=== PATIENT | female | born 1980 | race Caucasian/White ===

== ENCOUNTER 2016-08-29 09:59 | Inpatient (IN) | payer OTHER ==
[~2016-08-29] VITALS: Ht 167.6 cm; Wt 72.6 kg
[2016-08-29 18:00] VITALS: BP 123/67
--- NOTE | 2016-08-29 18:00 | NUR ---
Pre-admission Notes: Received patient in intake at this time. Alert, verbally responsive. Oriented x 4. Able to make her needs known. Appears anxious with mild tremors noted. Also appears nervous and requires reassurance. Denies any seizure history and denies any allergies. Able to answer questions readily and appropriately regarding the admission process. Noted with good eye contact. Denies any past medical hx. Does not have a PCP. Patient states that she is here to get help from drinking. Explained to the client the admission process, provided support and reassurance. VS as ff: BP 123/67 Pulse 99 RR [address] 0/10 O2 sat = 96% RA CIWA 4
[2016-08-29] MEDS ORDERED: IBUPROFEN 400 MG TABLET PO PRN (18:15)
[2016-08-29] MEDS ORDERED: MIRALAX 17 GM POWD.PACK PO PRN (18:15)
[2016-08-29] MEDS ORDERED: CLONIDINE HCL 0.1 MG TABLET PO PRN (18:15)
[2016-08-29] MEDS ORDERED: DICYCLOMINE HCL 20 MG TABLET PO PRN (18:15)
[2016-08-29] MEDS ORDERED: diphenhydrAMINE 50 MG CAPSULE PO PRN (18:15)
[2016-08-29] MEDS ORDERED: ACETAMINOPHEN 325 MG TABLET PO PRN (18:15)
[2016-08-29] MEDS ORDERED: LORAZEPAM 1 MG TABLET PO PRN ×2 (18:15)
[2016-08-29] MEDS ORDERED: MAG HYDROX/AL HYDROX/SIMETH 30 ML LIQUID UDC PO PRN (18:15)
[2016-08-29] MEDS ORDERED: MAGNESIUM HYDROXIDE 30 ML LIQUID UDC PO PRN (18:15)
[2016-08-29] MEDS ORDERED: THIAMINE HCL 200 MG/2 ML VIAL IM ONE (18:15)
[2016-08-29] MEDS ORDERED: LOPERAMIDE HCL 2 MG CAPSULE PO PRN ×2 (18:15)
[2016-08-29] MEDS ORDERED: LORAZEPAM 2 MG/1 ML VIAL IM PRN (18:15)
[2016-08-29] MEDS ORDERED: ONDANSETRON 4 MG/2 ML VIAL IM PRN (18:15)
[2016-08-29] MEDS ORDERED: ONDANSETRON ODT 4 MG TAB.RAPDIS SL PRN (18:15)
--- NOTE | 2016-08-29 18:26 | NUR ---
Admission Note: Admitted a 35 year old female under the care of Dr. Sergio Whyte who states that she is here to detox from ETOH. Alert and oriented x 4. Able to make her needs known. Appears anxious, fearful and worried as this is the patient's first time in detox. Reassurance and support provided. Respirations even and unlabored. No SOB noted. Skin warm and moist to touch. Body search done. No contraband was found. Skin check done. No skin breakdown noted. Abdomen soft and non-distended with (+) BS in all 4 quadrants. Denies any complains of N/V/D or constipation noted. No complains of abdominal discomfort noted. Bladder non-distended. No complains of dysuria noted. Ambulatory ad eufemia with steady gait. Patient denies any allergies. Wishes to be FULL CODE. Follows a regular diet at home. Denies any past medical hx. Reports not having a PCP. Denies any seizure history. Patient brought in 3 bottles of herbal supplements for sleep and for health maintenance. Reports that both her parents have a hx of substance abuse. Everyday stressors in life has led her to drink more than she should. Substance Use: 1. ETOH - since 27 years old, drinks 750cc of wine, 750cc of Hood Castillo and 2 beers daily to every other day. Last drink was on 08/27/2016 Treatment Hx: 1. First time in treatment Dr. Whyte made aware of patient's arrival in the unit, report provided and will come and see the patient and enter orders. Addendum: 08/29/16 at 1904 by ZENA TAMAYO LVN Note clarification to substance use hx: 1. Substance Use: 1. ETOH - since 27 years old, drinks 750cc of wine, 750cc of Hood Castillo and 2 beers daily to every other day x 3 years. Last drink was on 08/27/2016
[2016-08-29] MEDS ORDERED: [UNRECOGNIZED DRUG - REMARK] (18:45)
[2016-08-29] MEDS ORDERED: CAYE450C5 PO (18:45)
[2016-08-29] MEDS ORDERED: [UNRECOGNIZED DRUG - OTHER] (18:45)
--- NOTE | 2016-08-29 18:57 | NUR ---
End of Shift Notes: Patient is in her room at this time. Able to provide urine specimen for UDS and test. Explained all of the unit's protocol and procedures. Safety precautions in place. Will continue to monitor.
[2016-08-29 19:01] LABS: *URINE HCG, QUAL NEGATIVE (NEGATIVE)
[2016-08-29 19:24] LABS: *AMPHETAMINE, URINE NEGATIVE (NEGATIVE); *BARBITURATE, URINE NEGATIVE (NEGATIVE); *CANNABINOID, URINE POSITIVE (NEGATIVE); *COCCAINE, URINE NEGATIVE (NEGATIVE); *OPIATE, URINE NEGATIVE (NEGATIVE); *PHENCYCLIDINE SCREEN,URINE NEGATIVE (NEGATIVE)
[2016-08-29 20:00] VITALS: BP 132/77
--- NOTE | 2016-08-29 20:00 | NUR ---
Start of Shift Pt is a 35 year old female admitted for ETOH dependence, placed on 5 day Ativan taper. Pt reported consuming 750cc of wine, 750cc of tonio haylee and 2 beers from an everyday basis or to an every other day basis. Pt denies any past medical history, denies seizure history. NKA, regular diet, fall/seizure precautions and full code. Upon assessment, pt presents with anxiousness, is in emotional distress, visible tremors, skin flushed noted with moderate sweat. Respirations even/unlabored, denies SOB/chest pain, denies n/v/d, bowel sounds active x4, abdomen soft. Safety measures in place, call light within reach, side rails up x2, bed locked and in low position. Will continue to monitor.
[2016-08-29 20:27] LABS: BASOPHILS % (AUTO) 0.2 % (0.0-2.0); EOSINOPHILS # (AUTO) 0.1 K/uL (0.0-0.7); EOSINOPHILS % (AUTO) 0.9 % (0.0-7.0); HEMATOCRIT 40.3 % (37-47); HEMOGLOBIN 13.7 G/DL (12.0-16.0); LYMPHOCYTES # (AUTO) 2.4 K/UL (0.8-4.8); LYMPHOCYTES % (AUTO) 19.4 % (20.5-51.5); MEAN CORPUSCULAR HEMOGLOBIN 31.8 UUG (27.0-31.0); MEAN CORPUSCULAR HGB CONC 34 g/dL (32.0-37.0); MEAN CORPUSCULAR VOLUME 93.5 FL (81.0-99.0); MONOCYTES # (AUTO) 1.1 K/UL (0.1-1.30); MONOCYTES % (AUTO) 9.4 % (0.0-11.0); NEUTROPHILS # (AUTO) 8.6 K/UL (1.8-8.9); NEUTROPHILS % (AUTO) 70.1 % (38.5-71.5); PLATELET COUNT (AUTO) 374 K/UL (150-450); RED BLOOD CELL COUNT(AUTO) 4.31 MIL/UL (4.2-5.4); WHITE BLOOD COUNT (AUTO) 12.2 K/UL (4.0-11.2)
[2016-08-29 20:31] LABS: ALANINE AMINOTRANSFERASE 44 U/L (14-59); ALKALINE PHOSPHATASE 68 U/L (50-136); AMYLASE 56 U/L (25-115); ASPARTATE AMINOTRANSFERASE 39 U/L (15-37); BILIRUBIN,TOTAL 0.4 mg/dL (0.2-1.0); CARBON DIOXIDE 26 mmol/L (21-32); CHLORIDE 102 mmol/L (98-107); CREATININE 1.1 mg/dL (0.6-1.3); ETHANOL < 3 MG/DL (0-0); GLUCOSE 102 mg/dL (74-106); LIPASE 120 U/L (73-393); MAGNESIUM 1.6 mg/dL (1.8-2.4); POTASSIUM 3.8 mmol/L (3.5-5.1); TOTAL PROTEIN, SERUM 7.9 g/dL (6.4-8.2); UREA NITROGEN, BLOOD 12 mg/dL (7-18)
[2016-08-29 20:41] LABS: THYROID STIMULATING HORMONE 2.209 mIU/mL (0.358-3.740)
[2016-08-29] MEDS ORDERED: MAGNESIUM OXIDE 400 MG TABLET PO ONE (21:00)
[2016-08-29] MEDS ORDERED: LORAZEPAM 1 MG TABLET PO SCH (21:00)
[2016-08-29] MEDS ORDERED: MAGNESIUM OXIDE 400 MG TABLET ONE (21:26)
[2016-08-30] VITALS: BP 129/76
--- NOTE | 2016-08-30 | NUR ---
Vital Signs BP 129/76, pulse 69, resp 16, Spo2 99% room air, temp 97.9, no reports of pain 0/10 CIWA deferred d/t pt sleeping to assess while pt is awake as ordered. Safety measures in place, will continue to monitor.
[2016-08-30 04:00] VITALS: BP 115/72
--- NOTE | 2016-08-30 04:00 | NUR ---
Vital Signs BP 115/72, pulse 70, resp 16, Spo2 100% room air, temp 97.6, no reports of pain 0/10 CIWA deferred d/t pt sleeping to assess while pt is awake as ordered. Safety measures in place, will continue to monitor.
--- NOTE | 2016-08-30 07:00 | NUR ---
End of Shift Pt is a 35 year old female admitted for ETOH dependence, placed on 5 day Ativan taper. Pt reported consuming 750cc of wine, 750cc of tonio haylee and 2 beers from an everyday basis or to an every other day basis. Pt denies any past medical history, denies seizure history. NKA, regular diet, fall/seizure precautions and full code. During shift, pt presented with anxiousness, in emotional distress, visible tremors, skin flushed noted with moderate sweat scheduled medications administered, CIWA 5. Mag-Ox 800mg supplemented and refused Vitamin B1 inj, risks/benefits explained. Pt slept for 8 hours, intake of 1000 ml PO, voids x1 and stool x0. Safety measures in place, call light within reach, side rails up x2, bed locked and in low position. Endorsed to day shift nurse.
--- NOTE | 2016-08-30 07:01 | NUR ---
Start of Shift Notes: Received patient in her room. Alert and verbally responsive. Oriented x 4 Able to make her needs known. Respirations even and unlabored. No SOB noted. Skin warm and dry to touch. Abdomen soft and non-distended with (+) BS in all 4 quadrants. No complains of N/V/D or constipation noted. Ambulatory ad eufemia with steady gait. Patient is a 35 year old female admitted for ETOH dependence who was placed on a 5-day Ativan taper as ordered. No adverse reactions noted. Denies any past medical hx. Prior to admission, patient was using 750cc of wine, 750cc of tonio irnaldi and 2 beers daily to every other day x 3 years. NKA. FULL CODE. Regular diet. On fall and seizure precautions. Educated patient on her current plan of care for the day and her medication regimen. Encouraged oral fluid intake and encouraged group participation to learn new skills to prevent relapse. Will continue to monitor.
[2016-08-30 08:00] VITALS: BP 129/86
[2016-08-30] MEDS: THIAMINE HCL 100 MG TABLET PO SCH (08:08)
[2016-08-30] MEDS: FOLIC ACID 1 MG TABLET PO SCH (08:08)
[2016-08-30] MEDS: MULTIVITAMINS,THERAPEUTIC TABLET PO SCH (08:08)
[2016-08-30] MEDS: LORAZEPAM 1 MG TABLET PO SCH ×4 (08:08→21:59)
[2016-08-30] MEDS ORDERED: TUBERCULIN,PURIF.PROT.DERIV. 5 TU/0.1 ML TEST ID ONE (09:00)
[2016-08-30 12:00] VITALS: BP 118/71
--- NOTE | 2016-08-30 14:47 | NUR ---
Psych MD Communication: Notified Dr. Peraza of patient's behavior. Appears depressed, emotional and at times unable to be redirected.
--- NOTE | 2016-08-30 15:00 | NUR ---
Pt seen and evaluated by Dr. Peraza
[2016-08-30 16:00] VITALS: BP 99/54
--- NOTE | 2016-08-30 18:54 | NUR ---
Endo of Shift Notes: Patient continues to be on a 5-day Ativan taper as ordered to manage ETOH withdrawal. VS monitored closely. No significant abnormalities noted Withdrawal symptoms were closely monitored. Initial CIWA 9, patient presented with gross tremors, anxiety, agitation and sweats. Last CIWA 5. Per patient, Ativan has been helping her with her withdrawal symptoms. Patient was encouraged to attend group and socialize with his peers due to episodes of self isolation in the room. Patient was also very emotional during the shift. Support was provided. Compliant with care and treatment. ALl needs met and attended. Call light in reach. Will monitor closely.
--- NOTE | 2016-08-30 19:50 | NUR ---
START OF SHIFT 309 Received report from day shift nurse. Pt is lying in bed resting. She is a 35 yo female admitted to [facility] on 08/29 for ETOH dependence. She is A&O x4 and ambulatory. NKA, full code status, and on a regular diet. She has a PMH of depression. On admission she reported drinking wine 750mL, tonio haylee's 750mL, and 2 beers per day. She started a 5 day Ativan taper on 08/30. She has moist skin, tremors that can be felt, and reports anxiety. Pt denies SI. Ativan taper due tonight. Fall and seizure precautions in place. Bed is down with call light in reach.
[2016-08-30 20:00] VITALS: BP 117/65
[2016-08-31] VITALS: BP 102/61
--- NOTE | 2016-08-31 | NUR ---
0000 CIWA deferred CIWA ordered Q4HWA. Pt is lying in bed resting with eyes closed. Respirations even and unlabored. Vital signs obtained. Safety measures in place.
[2016-08-31 04:00] VITALS: BP 122/72
--- NOTE | 2016-08-31 04:00 | NUR ---
0400 CIWA deferred CIWA ordered Q4HWA. Pt is lying in bed resting with eyes closed. Respirations even and unlabored. Vital signs obtained. Safety measures in place.
--- NOTE | 2016-08-31 07:20 | NUR ---
END OF SHIFT Report provided to day shift nurse. Pt is lying in bed resting. She is a 35 yo female admitted to [facility] on 08/29 for ETOH dependence. She is A&O x4 and ambulatory. NKA, full code status, and on a regular diet. She has a PMH of depression per MD notes. On admission she reported drinking wine 750mL or tonio haylee's 750mL and 2 beers per day. She started a 5 day Ativan taper on 08/30. She has moist skin, tremors that can be felt, and reports anxiety. No PRN medications administered. Fall and seizure precautions in place. Bed is down with call light in reach. Addendum: 08/31/16 at 0748 by NANCY SARKAR RN Last CIWA was 4. She drank 480mL and slept for 11 hours.
--- NOTE | 2016-08-31 07:30 | NUR ---
START OF SHIFT Pt 35 y/o female admitted for etoh dependence. Pt received in room with eyes closed resting, but easily arousable to name. Pt alert and oriented to name, place, and time. Perrla. Skin warm and slightly moist to touch. Bilateral hnd tremors noted. Respirations even and unlabored. Pt appeared guarded on approach with poor eye contact during conversation. It was reported that pt slept for 11 hours last night. Bed on lowest position with side rails x2 up for safety. Call light within reach. No distress noted at this time.
[2016-08-31 08:00] VITALS: BP 117/71
[2016-08-31] MEDS: FOLIC ACID 1 MG TABLET PO SCH (09:08)
[2016-08-31] MEDS: MULTIVITAMINS,THERAPEUTIC TABLET PO SCH (09:08)
[2016-08-31] MEDS: THIAMINE HCL 100 MG TABLET PO SCH (09:08)
[2016-08-31] MEDS: LORAZEPAM 1 MG TABLET PO SCH ×3 (09:09→21:18)
--- NOTE | 2016-08-31 10:02 | NUR ---
Clinician encouraged client to attend groups. Client declined stating "it won't do me any good crying in group". Client states she wants to go home. JUNIOR Correa informed. Client then asked for help with anxiety . JUNIOR Correa notified.
[2016-08-31 10:12] LABS: HEPATITIS B SURFACE AG Negative (Negative)
[2016-08-31] MEDS: HYDROXYZINE PAMOATE 25 MG CAPSULE PO PRN (10:20)
--- NOTE | 2016-08-31 10:26 | NUR ---
PRN pt tearful episode and appeared anxious. vistaril po prn per MD order given and tolerated well.
--- NOTE | 2016-08-31 11:26 | NUR ---
PRN EVAL Pt observed in room on bed. No distress noted at this time.
[2016-08-31 12:00] VITALS: BP 116/70
[2016-08-31 16:00] VITALS: BP 101/65
--- NOTE | 2016-08-31 18:27 | NUR ---
END OF SHIFT Pt 35 y/o female admitted for etoh dependence. Pt alert and oriented to name, place, and time. Perrla. Skin warm and slightly moist to touch. Bilateral hand tremors noted. Respirations even and unlabored. Pt observed isolative to room throughout the day. Pt did not attend group activity. Pt with periods of anxiety this morning. Pt was seen by MD today. Pt medication compliant and tolerated well. No ASE noted. Bed on lowest position with side rails x2 up for safety. Call light within reach. No distress noted at this time.
--- NOTE | 2016-08-31 19:45 | NUR ---
START OF SHIFT Received report from day shift nurse. Pt is lying in bed resting. She is a 35 yo female admitted to [facility] on 08/29 for ETOH dependence. She is A&O x4 and ambulatory. NKA, full code status, and on a regular diet. She has a PMH of depression per MD notes. Upon admission she admitted to drinking wine 750mL, tonio haylee's 750mL, and 2 beers per day. 5 day Ativan taper was started on 08/30. She has mild tremors, anxiety, and moist skin. Taper due tonight. Pt is cooperative with treatment. Fall and seizure precautions ordered. Bed is down with call light in reach.
[2016-08-31 20:00] VITALS: BP 98/65
[2016-08-31] MEDS: GABAPENTIN 300 MG CAPSULE PO SCH (21:18)
--- NOTE | 2016-08-31 21:19 | NUR ---
PRN Benadryl Pt reports inability to sleep. PRN Benadryl administered.
--- NOTE | 2016-08-31 22:20 | NUR ---
PRN Benadryl reassessment PRN Benadryl effective. Pt is lying in bed resting with eyes closed. Respirations even and unlabored. Safety measures in place.
[2016-09-01] VITALS: BP 112/68
--- NOTE | 2016-09-01 07:10 | NUR ---
END OF SHIFT Report provided to day shift nurse. Pt is lying in bed resting. She is a 35 yo female admitted to [facility] on 08/29 for ETOH dependence. She is A&O x4 and ambulatory. NKA, full code status, and on a regular diet. She has a PMH of depression per MD notes. Upon admission she admitted to drinking wine 750mL, tonio haylee's 750mL, and 2 beers per day. 5 day Ativan taper was started on 08/30. Her mood is depressed but she is cooperative with treatment. She denies SI. Provided support. PRN Benadryl administered for sleep. Last CIWA was 5. She drank 1355mL and slept for 8 hours. Fall and seizure precautions ordered. Bed is down with call light in reach.
--- NOTE | 2016-09-01 07:30 | NUR ---
START OF SHIFT Pt 35 y/o female admitted for etoh dependence. Pt received in room with eyes closed resting, but easily arousable to name. Pt alert and oriented to name, place, and time. Perrla. Perrla. Skin warm and slightly moist to touch. Bilateral hand tremors noted. Respirations even and unlabored. Pt with flat/ sad affect noted. It was reported that pt slept for 8 hours last night. Bed on lowest position with side rails x2 up for safety. Call light within reach. No distress noted at this time.
[2016-09-01] MEDS: FOLIC ACID 1 MG TABLET PO SCH (08:38)
[2016-09-01] MEDS: LORAZEPAM 1 MG TABLET PO SCH ×4 (08:38→21:21)
[2016-09-01] MEDS: MULTIVITAMINS,THERAPEUTIC TABLET PO SCH (08:38)
[2016-09-01] MEDS: THIAMINE HCL 100 MG TABLET PO SCH (08:38)
[2016-09-01] MEDS: GABAPENTIN 300 MG CAPSULE PO SCH ×3 (08:38→21:21)
[2016-09-01 08:50] VITALS: BP 116/71
[2016-09-01 12:00] VITALS: BP 132/92
[2016-09-01] MEDS: HYDROXYZINE PAMOATE 25 MG CAPSULE PO PRN (14:45)
--- NOTE | 2016-09-01 14:49 | NUR ---
PRN pt states feels anxious. Vistaril po prn per MD order given and tolerated well.
--- NOTE | 2016-09-01 15:49 | NUR ---
TREVER AQUINO Pt observed sitting calmly in group activity. No distress noted at this time.
[2016-09-01 17:39] VITALS: BP 122/88
--- NOTE | 2016-09-01 19:05 | NUR ---
Start of Shift Patient received. Patient is in her room awake, alert and verbally responsive. Breathing even and non labored. No signs of pain or discomfort. Patient is a 35 year old female admitted on 08/29/16 for ETOH Dependence under the care of Dr. Whyte. Patient is currently receiving a modified 5 day Ativan taper. Patient verbalizes no known allergies, wishes to be full code, following a regular diet, placed on fall and seizure precautions, skin noted intact. Patient denies past medical history. per endorsement, patient was given PRN Vistaril with medication noted to be effective. Last CIWA noted to be 4. All needs attended to promptly. Will continue plan of care as ordered.
[2016-09-01 20:30] VITALS: BP 123/82
--- NOTE | 2016-09-01 21:21 | NUR ---
PRN Medication Administration Patient verbalizing pain of due to a headache of 5/10. PRN Motrin administered as per order. will continue to monitor.
--- NOTE | 2016-09-01 22:20 | NUR ---
PRN Medication Reassessment Patient noted in bed watching TV. Breathing even and non labored. Patient is able to verbalize pain has subsided. PRN Motrin noted to be effective. Will continue to monitor.
[2016-09-02] VITALS: BP 115/72
[2016-09-02 04:00] VITALS: BP 112/68
--- NOTE | 2016-09-02 07:12 | NUR ---
End of Shift Patient is in bed sleeping. Breathing even and non labored. No signs of pain or discomfort noted. Patient is a 35 year old female admitted on 08/29/16 for ETOH Dependence and continues on a 5 day Ativan taper. No known allergies, wishes to be full code, following a regular diet, placed on fall and seizure precautions, skin noted intact. Patient denies past medical history. Patient was given PRN Motrin for 5/10 headache with medication noted to be effective. All needs attended to promptly. Will continue plan of care as ordered.
--- NOTE | 2016-09-02 07:30 | NUR ---
START OF SHIFT Pt 35 y/o female admitted for etoh dependence. Pt received in room with eyes closed resting, but easily arousable to name. Pt alert and oriented to name, place, and time. Perrla. Perrla. Skin warm and slightly moist to touch. Bilateral hand tremors noted. Respirations even and unlabored. Pt appears more animated this morning, smiling during conversation. It was reported that pt slept for 8 hours last night. Bed on lowest position with side rails x2 up for safety. Call light within reach. No distress noted at this time.
[2016-09-02 08:00] VITALS: BP 123/71
[2016-09-02] MEDS: GABAPENTIN 300 MG CAPSULE PO SCH ×3 (08:35→21:19)
[2016-09-02] MEDS: LORAZEPAM 1 MG TABLET PO SCH ×2 (08:35→21:19)
[2016-09-02] MEDS: THIAMINE HCL 100 MG TABLET PO SCH (08:35)
[2016-09-02] MEDS: FOLIC ACID 1 MG TABLET PO SCH (08:35)
[2016-09-02] MEDS: MULTIVITAMINS,THERAPEUTIC TABLET PO SCH (08:35)
[2016-09-02] MEDS ORDERED: LORAZEPAM 1 MG TABLET PO SCH (09:00)
[2016-09-02 14:03] VITALS: BP 134/83
--- NOTE | 2016-09-02 15:45 | NUR ---
Therapist prompted client to attend daily group sessions, and client stated that she would make an effort to attend the next group meeting.
[2016-09-02 16:00] VITALS: BP 125/84
[2016-09-02] MEDS ORDERED: IBUP-1953 PO (17:15)
[2016-09-02] MEDS ORDERED: HYDR-3895 PO (17:15)
[2016-09-02] MEDS ORDERED: DIPH50CA37 PO (17:15)
[2016-09-02] MEDS ORDERED: GABA-534 PO (17:15)
--- NOTE | 2016-09-02 19:05 | NUR ---
Start of Shift Patient Received. Patient is in activities room participating in group meeting. Patient is a 35 year old female admitted on 08/29/16 for ETOH Dependence under the care of Dr. Whyte and continues on a 5 day Ativan taper. No known allergies, wishes to be full code, following a regular diet, placed on fall and seizure precautions, skin noted intact. Patient denies past medical history. Per endorsement, patient is compliant with plan of care and is tolerating medications well. Last CIWA noted 1. All needs attended to promptly. Will continue plan of care as ordered.
[2016-09-02 20:30] VITALS: BP 125/86
[2016-09-03 00:37] VITALS: BP 121/78
[2016-09-03 04:00] VITALS: BP 106/63
--- NOTE | 2016-09-03 07:10 | NUR ---
End of Shift Patient is in bed sleeping. Breathing even and non labored. No signs of pain or discomfort noted. Patient is a 35 year old female admitted on 08/29/16 for ETOH Dependence and continues on a 5 day Ativan taper. No known allergies, wishes to be full code, following a regular diet, placed on fall and seizure precautions, skin noted intact. Patient denies past medical history. No PRN Medications administered. All needs attended to promptly. Will endorse to continue plan of care as ordered.
--- NOTE | 2016-09-03 07:11 | NUR ---
Start of Shift Notes: Received patient in her room. Alert and verbally responsive. Oriented x 4 Able to make her needs known. Respirations even and unlabored. No SOB noted. Skin warm and dry to touch. Abdomen soft and non-distended with (+) BS in all 4 quadrants. No complains of N/V/D or constipation noted. Ambulatory ad eufemia with steady gait. Patient is a 35 year old female admitted for ETOH dependence who was placed on a 5-day Ativan taper as ordered. No adverse reactions noted. Denies any past medical hx. Prior to admission, patient was using 750cc of wine, 750cc of tonio rinaldi and 2 beers daily to every other day x 3 years. NKA. FULL CODE. Regular diet. On fall and seizure precautions. Educated patient on her current plan of care for the day and her medication regimen. Encouraged oral fluid intake and encouraged group participation to learn new skills to prevent relapse. Will continue to monitor.
[2016-09-03 08:00] VITALS: BP 118/82
[2016-09-03] MEDS ORDERED: LORAZEPAM 1 MG TABLET PO SCH ×2 (09:00)
[2016-09-03] MEDS: THIAMINE HCL 100 MG TABLET PO SCH (09:59)
[2016-09-03] MEDS: FOLIC ACID 1 MG TABLET PO SCH (09:59)
[2016-09-03] MEDS: MULTIVITAMINS,THERAPEUTIC TABLET PO SCH (09:59)
[2016-09-03] MEDS: GABAPENTIN 300 MG CAPSULE PO SCH ×3 (09:59→20:26)
--- NOTE | 2016-09-03 09:59 | NUR ---
Al due meds at 0900 not administered: Patient refused all due meds at 0900. Patient states "I feel OK and I want to leave." Encouraged patient to stay and explained risk and benefits. Dr. Whyte and client service representative made aware and will speak to the patient.
[2016-09-03 12:00] VITALS: BP 122/81
[2016-09-03 12:49] LABS: *AMPHETAMINE, URINE NEGATIVE (NEGATIVE); *BARBITURATE, URINE NEGATIVE (NEGATIVE); *CANNABINOID, URINE POSITIVE (NEGATIVE); *COCCAINE, URINE NEGATIVE (NEGATIVE); *OPIATE, URINE NEGATIVE (NEGATIVE); *PHENCYCLIDINE SCREEN,URINE NEGATIVE (NEGATIVE)
--- NOTE | 2016-09-03 15:34 | NUR ---
Gabapentin 300 mg PO not administered: Patient refused Gabapentin 300 mg PO at this time. CIWA 3. Patient continues with mild agitation and anxiety. Redirectable with non-pharmacological interventions. MD aware. Will continue to monitor.
[2016-09-03 16:00] VITALS: BP 115/76
--- NOTE | 2016-09-03 18:44 | NUR ---
End of Shift Notes: Patient completed her Ativan taper today and will be discharging tomorrow. UDS in and resulted. VS monitored closely. No significant abnormalitites noted. Withdrawal symptoms were closely monitored. Patients initial CIWA 3. Last CIWA 3. Ativan refused 0900 meds in AM. Has been emotional throughout the day and requires constant redirection. Dr. Whyte was able to encourage patient to stay and finish her treatment. Encouraged to participate in group and socialize with her peers. Safety precautions in place. All needs met and attended. Will continue to monitor closely.
--- NOTE | 2016-09-03 19:05 | NUR ---
Start of Shift Patient Received. Patient is in her room, awake, alert and verbally responsive. Patient noted to be watching TV. Breathing even and non labored. Patient is a 35 year old female admitted on 08/29/16 for ETOH Dependence under the care of Dr. Whyte and has completed a 5 day Ativan taper. No known allergies, wishes to be full code, following a regular diet, placed on fall and seizure precautions, skin noted intact. Patient denies past medical history. Per endorsement, patient is set for discharge tomorrow 09/04/16. Patient noted to refuse medication throughout the day. All needs attended to promptly. Will continue plan of care as ordered.
[2016-09-03 20:23] VITALS: BP 126/90
[2016-09-04] VITALS: BP 114/76
[2016-09-04 04:05] VITALS: BP 111/69
--- NOTE | 2016-09-04 07:06 | NUR ---
End of Shift Patient is noted awake alert and verbally responsive. Breathing even and non labored. No signs of pain or discomfort noted. Patient is a 35 year old female admitted on 08/29/16 for ETOH Dependence and completed a 5 day Ativan taper. No known allergies, wishes to be full code, following a regular diet, placed on fall and seizure precautions, skin noted intact. Patient denies past medical history. No PRN Medications administered. Patient is set for discharge today 09/04/16. All needs attended to promptly. Will endorse to continue plan of care as ordered.
--- NOTE | 2016-09-04 07:59 | NUR ---
BEGINNING OF SHIFT Patient endorsement report received from material handler 1st shift nurse, all pertinent information discussed. Patient is a 35 year old female admitted on 08/29/2016 with admitting Dx: ETOH dependence. Patient with ongoing modified 5 day Ativan taper as ordered, patient completed taper and is scheduled to be discharged today. received No PRN medications during material handler 1st shift. Last CIWA score of: 3. Patient slept for 7 hours. patient received in bed awake, alert and oriented x4, educated regarding plan of care for the day and medication regimen and will educate regarding all discharge instructions with good verbal understanding, will monitor closely. fall and seizure precautions observed at all times. all needs met and rendered, will continue to monitor.
[2016-09-04] MEDS: GABAPENTIN 300 MG CAPSULE PO SCH (08:26)
[2016-09-04] MEDS: THIAMINE HCL 100 MG TABLET PO SCH (08:26)
[2016-09-04] MEDS: FOLIC ACID 1 MG TABLET PO SCH (08:27)
[2016-09-04] MEDS: MULTIVITAMINS,THERAPEUTIC TABLET PO SCH (08:27)
[2016-09-04 08:32] VITALS: BP 116/81
--- NOTE | 2016-09-04 08:36 | NUR ---
DISCHARGE Patient discharged at 0836, prior to discharge patient was provided with education and teaching regarding all discharge instructions with good verbal understanding. Patient discharged to home and noted self motivated towards sobriety. Patient with no s/sx of withdrawal with last ciwa score of: 0. vital signs WNL. Patients home medications, prescriptions and discharge instructions were placed in patients personal duffel bag. patient off the unit at 0836 in stable condition.
== END 2016-09-04 08:36 | disposition home or self-care (01) | DRG 895 ==
LOC: SRC 17:39
PROVIDERS: ADMIT Internal Medicine; ATTEND Internal Medicine
PROC: HZ2ZZZZ Detoxification Services for Substance Abuse Treatment (ICD-10-PCS; principal; 2016-08-29)
PROC: HZ31ZZZ Individual Counseling for Substance Abuse Treatment, Behavioral (ICD-10-PCS; 2016-08-31)
PROC: HZ41ZZZ Group Counseling for Substance Abuse Treatment, Behavioral (ICD-10-PCS; 2016-09-01)
DX: F10.230 Alcohol dependence with withdrawal, uncomplicated (principal); K70.10 Alcoholic hepatitis without ascites; F12.90 Cannabis use, unspecified, uncomplicated; Y90.0 Blood alcohol level of less than 20 mg/100 ml; E83.42 Hypomagnesemia; Z91.5 Personal history of self-harm; Z83.3 Family history of diabetes mellitus; Z81.1 Family history of alcohol abuse and dependence; Z81.3 Family history of other psychoactive substance abuse and dependence; Z63.0 Problems in relationship with spouse or partner; D72.823 Leukemoid reaction; F32.9 Major depressive disorder, single episode, unspecified
CPT/HCPCS: 36415; 70030-TC; 80307; 80349; 83690; 83735; 84443; 84703; 85025; 86580; 86592; 86705; 86803; 87340; 87806; G0480; Q0163